=== PATIENT | female | born 1980 | race Caucasian/White ===

== ENCOUNTER 2020-10-06 07:18 | Inpatient (IN) | payer OTHER ==
[~2020-10-06] VITALS: Ht 167.6 cm; Wt 85.2 kg
[2020-10-06] MEDS ORDERED: ACETAMINOPHEN 325 MG TABLET ONE (07:51)
[2020-10-06] MEDS ORDERED: KETOROLAC 30 MG/1 ML ONE (07:51)
[2020-10-06] MEDS ORDERED: ONDANSETRON 2MG/ML, 2ML ONE ×2 (07:51→12:23)
[2020-10-06] MEDS ORDERED: KETOROLAC 30 MG/1 ML IVPush ONE (08:00)
[2020-10-06] MEDS ORDERED: SODIUM CHLORIDE 0.9% 1,000ML IVBOLUS ONE (08:00)
[2020-10-06] MEDS ORDERED: ACETAMINOPHEN 325 MG TABLET PO ONE (08:00)
[2020-10-06] MEDS ORDERED: SODIUM CHLORIDE 0.9% 1,000 ML IV ONE ×2 (08:00→10:00)
[2020-10-06] MEDS ORDERED: ONDANSETRON 2MG/ML, 2ML IVPush ONE (08:00)
[2020-10-06 08:21] LABS: BASOPHILS % (AUTO) 0 % (0-1); EOSINOPHILS % (AUTO) 0 % (1-7); LYMPHOCYTES % (AUTO) 5 % (22-44); MEAN CORPUSCULAR HEMOGLOBIN 28.3 pg (27.0-34.8); MEAN PLATELET VOLUME 8.4 fL (7.4-10.4); MONOCYTES % (AUTO) 6 % (2-9); NEUTROPHILS % (AUTO) 89 % (42-75); RED BLOOD COUNT 4.52 x10^6/uL (3.82-5.3); RED CELL DISTRIBUTION WIDTH 13.3 % (9.6-15.2)
[2020-10-06 08:25] LABS: ALANINE AMINOTRANSFERASE 26 U/L (12-78); ALBUMIN 3.9 g/dL (3.4-5.0); ANION GAP 7 mmol/L (5-15); CALCIUM 8.8 mg/dL (8.5-10.1); CHLORIDE 105 mmol/L (98-107); CREATININE 0.75 mg/dL (0.55-1.02)
[2020-10-06 08:32] LABS: ALKALINE PHOSPHATASE 70 U/L (45-117); BILIRUBIN,TOTAL 0.6 mg/dL (0.2-1.0)
[2020-10-06 08:36] LABS: D-DIMER (DIC) 0.49 ug/mlFEU (0.00-0.52); PROTIME 10.9 Seconds (9.6-11.5)
[2020-10-06 08:38] LABS: PLATELET COUNT 253 x10^3/uL (130-400)
--- NOTE | 2020-10-06 08:40 | NUR ---
PT AMBULATED TO BR AND WAS STEADY ON FEET. URINE COLLECTED AND SENT TO LAB.
[2020-10-06 09:07] LABS: MD SCAN
[2020-10-06 09:10] LABS: MICROSCOPIC AUTO
--- NOTE | 2020-10-06 09:35 | NUR ---
PT RESTING, FEVER IMPROVED AFTER TYLENOL
[2020-10-06] MEDS ORDERED: SODIUM CHLORIDE FLUSH 10ML SYR IVF PRN (10:00)
[2020-10-06] MEDS ORDERED: CEFTRIAXONE 1,000 MG in DEXTROSE 5% 50 ML IVPB ONE (10:00)
[2020-10-06] MEDS ORDERED: ENOXAPARIN 40 MG/0.4 ML ONE (10:23)
[2020-10-06] MEDS: CEFTRIAXONE 2 GM in DEXTROSE 5% 50 ML IVPB SCH (10:27)
[2020-10-06] MEDS ORDERED: POLYETHYLENE GLYCOL 17 GM PACKET PO PRN (10:30)
[2020-10-06] MEDS: ENOXAPARIN 40 MG/0.4 ML SQ SCH (10:34)
--- NOTE | 2020-10-06 10:40 | NUR ---
PT C/O HEADACHE. ULTRAM GIVEN PER AUG. IV ROCEPHIN STARTED. PT RESTING WITH NO OTHER COMPLAINTS.
[2020-10-06] MEDS: LACTOBACILLUS CHEW TABLET PO SCH ×3 (11:31→20:18)
--- NOTE | 2020-10-06 11:33 | NUR ---
PT RESTING, SHE REPORTS PAIN HAS IMPROVED, BUT HEADACHE IS 5/10
[2020-10-06] MEDS: ONDANSETRON 2MG/ML, 2ML IVPush PRN ×2 (12:26→18:09)
--- NOTE | 2020-10-06 12:55 | NUR ---
REPORT GIVEN TO INNA CAGE. ALL QUESTIONS ANSWERED. AWAITING PT TRANSPORT.
[2020-10-06] MEDS ORDERED: OMNIPAQUE 350 MG/ML, 75ML BOTTLE ONE (13:14)
--- NOTE | 2020-10-06 13:41 | NUR ---
PT BACK FROM CT, BEING TRANSPORTED
[2020-10-06 14:03] VITALS: BP 106/69
[2020-10-06 14:23] LABS: GLUCOSE, CSF 63 mg/dL (40-80); TOTAL PROTEIN,CSF 32 mg/dL (15-45)
[2020-10-06] MEDS: ACETAMINOPHEN 325 MG TABLET PO PRN ×2 (14:57→20:18)
[2020-10-06] MEDS: SODIUM CHLORIDE 0.9% 1,000 ML IV SCH ×2 (14:57→22:00)
[2020-10-06 15:56] VITALS: BP 112/72
[2020-10-06 16:39] VITALS: BP 100/60
--- NOTE | 2020-10-06 17:49 | NUR ---
LATE ENTRY-SEPSIS WORKSHEET STARTED, RETROSPECTIVELY, TO HELP ENSURE THAT PATIENT RECIEVES PROPER TREATMENT.
[2020-10-06 20:09] VITALS: BP 110/73
[2020-10-06] MEDS: LACTULOSE 10 GM/15 ML UDC PO SCH (20:18)
[2020-10-06] MEDS ORDERED: SUMATRIPTAN 25 MG TABLET PO PRN (20:30)
[2020-10-07 01:04] VITALS: BP 101/67
[2020-10-07] MEDS: ONDANSETRON 2MG/ML, 2ML IVPush PRN ×2 (02:11→08:48)
[2020-10-07 05:43] LABS: BASOPHILS % (AUTO) 0 % (0-1); EOSINOPHILS % (AUTO) 0 % (1-7); LYMPHOCYTES % (AUTO) 5 % (22-44); MEAN CORPUSCULAR HEMOGLOBIN 28.8 pg (27.0-34.8); MEAN CORPUSCULAR HGB CONC 33.7 g/dL (32.4-35.8); MEAN PLATELET VOLUME 8.2 fL (7.4-10.4); MONOCYTES % (AUTO) 9 % (2-9); NEUTROPHILS % (AUTO) 86 % (42-75); PLATELET COUNT 221 x10^3/uL (130-400); RED BLOOD COUNT 3.84 x10^6/uL (3.82-5.3); RED CELL DISTRIBUTION WIDTH 13.3 % (9.6-15.2)
[2020-10-07 05:49] LABS: ALANINE AMINOTRANSFERASE 24 U/L (12-78); ALBUMIN 2.7 g/dL (3.4-5.0); ANION GAP 8 mmol/L (5-15); CALCIUM 7.9 mg/dL (8.5-10.1); CHLORIDE 108 mmol/L (98-107)
[2020-10-07 05:51] LABS: ALKALINE PHOSPHATASE 57 U/L (45-117); BILIRUBIN,TOTAL 0.3 mg/dL (0.2-1.0); TOTAL PROTEIN 5.9 g/dL (6.4-8.2)
[2020-10-07] MEDS: LACTOBACILLUS CHEW TABLET PO SCH ×4 (05:54→20:44)
[2020-10-07] MEDS: SODIUM CHLORIDE 0.9% 1,000 ML IV SCH ×2 (05:55→19:21)
[2020-10-07] MEDS: SUMATRIPTAN 25 MG TABLET PO PRN ×2 (06:30→20:47)
[2020-10-07 06:34] LABS: MD SCAN
[2020-10-07 07:22] VITALS: BP 115/65
[2020-10-07] MEDS: SENNA/DOCUSATE TABLET PO SCH (08:45)
[2020-10-07] MEDS: LACTULOSE 10 GM/15 ML UDC PO SCH ×2 (08:45→20:44)
[2020-10-07] MEDS: ACETAMINOPHEN 325 MG TABLET PO PRN ×2 (08:48→15:16)
[2020-10-07] MEDS: ENOXAPARIN 40 MG/0.4 ML SQ SCH (09:56)
[2020-10-07] MEDS: CEFTRIAXONE 2 GM in DEXTROSE 5% 50 ML IVPB SCH (10:30)
[2020-10-07 13:51] VITALS: BP 95/66
[2020-10-07 19:27] VITALS: BP 102/72
[2020-10-08 02:16] VITALS: BP 100/64
[2020-10-08] MEDS: ACETAMINOPHEN 325 MG TABLET PO PRN ×3 (02:22→20:20)
[2020-10-08] MEDS: SODIUM CHLORIDE 0.9% 1,000 ML IV SCH ×3 (02:23→15:30)
[2020-10-08] MEDS: LACTOBACILLUS CHEW TABLET PO SCH ×4 (05:35→20:20)
[2020-10-08 06:59] VITALS: BP 104/64
[2020-10-08 07:26] LABS: BASOPHILS % (AUTO) 1 % (0-1); EOSINOPHILS % (AUTO) 2 % (1-7); LYMPHOCYTES % (AUTO) 16 % (22-44); MEAN CORPUSCULAR HEMOGLOBIN 29.1 pg (27.0-34.8); MEAN CORPUSCULAR HGB CONC 33.5 g/dL (32.4-35.8); MEAN PLATELET VOLUME 8.5 fL (7.4-10.4); MONOCYTES % (AUTO) 8 % (2-9); NEUTROPHILS % (AUTO) 74 % (42-75); PLATELET COUNT 209 x10^3/uL (130-400); RED BLOOD COUNT 3.66 x10^6/uL (3.82-5.3); RED CELL DISTRIBUTION WIDTH 13.5 % (9.6-15.2)
[2020-10-08 07:28] LABS: MD NO
[2020-10-08 07:32] LABS: CREATININE 0.45 mg/dL (0.55-1.02)
[2020-10-08 07:35] LABS: CALCIUM 7.7 mg/dL (8.5-10.1)
[2020-10-08 07:43] LABS: ANION GAP 7 mmol/L (5-15)
[2020-10-08 07:47] LABS: CHLORIDE 114 mmol/L (98-107)
[2020-10-08] MEDS: LACTULOSE 10 GM/15 ML UDC PO SCH ×2 (08:54→19:32)
[2020-10-08] MEDS: SENNA/DOCUSATE TABLET PO SCH (08:55)
[2020-10-08] MEDS: ENOXAPARIN 40 MG/0.4 ML SQ SCH (09:44)
[2020-10-08] MEDS: CEFTRIAXONE 2 GM in DEXTROSE 5% 50 ML IVPB SCH (09:44)
[2020-10-08 12:04] VITALS: BP 112/76
[2020-10-08 19:08] VITALS: BP 125/82
[2020-10-09 00:19] VITALS: BP 105/63
[2020-10-09 05:41] LABS: BASOPHILS % (AUTO) 1 % (0-1); EOSINOPHILS % (AUTO) 2 % (1-7); LYMPHOCYTES % (AUTO) 15 % (22-44); MEAN CORPUSCULAR HEMOGLOBIN 29.1 pg (27.0-34.8); MEAN CORPUSCULAR HGB CONC 33.7 g/dL (32.4-35.8); MONOCYTES % (AUTO) 7 % (2-9); NEUTROPHILS % (AUTO) 76 % (42-75); PLATELET COUNT 276 x10^3/uL (130-400); RED BLOOD COUNT 3.66 x10^6/uL (3.82-5.3); RED CELL DISTRIBUTION WIDTH 13.3 % (9.6-15.2)
[2020-10-09 05:54] LABS: ANION GAP 5 mmol/L (5-15); CALCIUM 8.3 mg/dL (8.5-10.1); CHLORIDE 111 mmol/L (98-107)
[2020-10-09 05:55] LABS: MD NO
[2020-10-09 05:56] LABS: CREATININE 0.59 mg/dL (0.55-1.02)
[2020-10-09] MEDS: LACTOBACILLUS CHEW TABLET PO SCH ×2 (06:08→10:22)
[2020-10-09] MEDS: ACETAMINOPHEN 325 MG TABLET PO PRN (06:08)
[2020-10-09] MEDS: LACTULOSE 10 GM/15 ML UDC PO SCH (07:12)
[2020-10-09] MEDS: SENNA/DOCUSATE TABLET PO SCH (07:12)
[2020-10-09 07:35] VITALS: BP 107/72
[2020-10-09] MEDS ORDERED: POTASSIUM CHLORIDE 20 MEQ TAB.ER.PRT PO ONE (08:00)
[2020-10-09] MEDS ORDERED: SULF-23 PO (09:29)
[2020-10-09] MEDS ORDERED: ACID1TAB7 PO (09:29)
[2020-10-09] MEDS ORDERED: SULFAMETH./TRIMETHOPRIM DS 800MG/160MG TABLET PO SCH (09:30)
[2020-10-09] MEDS ORDERED: FLUTICASONE NASAL SPRAY 16GM NAS SCH (09:30)
[2020-10-09] MEDS: ENOXAPARIN 40 MG/0.4 ML SQ SCH (10:30)
== END 2020-10-09 12:23 | disposition home or self-care (01) | DRG 871 ==
LOC: ED 08:49 → EDIP 09:50 → 4EST 14:40 → DCLOUNGE 10-09 12:16
PROVIDERS: ADMIT Family Medicine; ATTEND Internal Medicine
PROC: 009U3ZX Drainage of Spinal Canal, Percutaneous Approach, Diagnostic (ICD-10-PCS; principal; 2020-10-06)
PROC: B01B1ZZ Fluoroscopy of Spinal Cord using Low Osmolar Contrast (ICD-10-PCS; 2020-10-06)
DX: A41.9 Sepsis, unspecified organism (principal); R65.21 Severe sepsis with septic shock; E87.1 Hypo-osmolality and hyponatremia; N10 Acute pyelonephritis; Q61.5 Medullary cystic kidney; B96.20 Unspecified Escherichia coli [E. coli] as the cause of diseases classified elsewhere; D63.8 Anemia in other chronic diseases classified elsewhere; E87.6 Hypokalemia; E88.09 Other disorders of plasma-protein metabolism, not elsewhere classified; J45.909 Unspecified asthma, uncomplicated; K80.20 Calculus of gallbladder without cholecystitis without obstruction; Z87.440 Personal history of urinary (tract) infections; Z87.442 Personal history of urinary calculi; I95.9 Hypotension, unspecified; Z20.822 Contact with and (suspected) exposure to COVID-19; Z88.5 Allergy status to narcotic agent; Z90.49 Acquired absence of other specified parts of digestive tract; Z98.51 Tubal ligation status
CPT/HCPCS: 36415; 71045; 71275; 74176; 77002; 80048; 80053; 81001; 82728; 82945; 83605; 83615; 83735; 84100; 84145; 84157; 84703; 85025; 85049; 85379; 85384; 85610; 85730; 86140; 87040; 87070; 87077; 87086; 87186; 87205; 87252; 89051; 93005; 96361; 96374; 96375; G0378; J0696; J1650; J1885; J2405; Q9967; J7030; U0003